=== PATIENT | female | born 1960 | race Caucasian/White ===

== ENCOUNTER 2018-09-03 07:02 | Emergency (ER) | payer BC ==
[2018-09-03 07:30] VITALS: BP 114/81
--- NOTE | 2018-09-03 07:52 | UC ---
Ear Complaint HPI - HPI Summary HPI Summary: 58 yo female c/o R ear pain, and now biting and chewing is clicking and becoming painful. States symptoms have worsened over the past week. States 2 years ago dentist changed her bite with a fake tooth - History of Current Complaint Chief Complaint: UCEar Stated Complaint: RIGHT EAR COMPLAINT Time Seen by Provider: 09/03/18 07:44 Hx Obtained From: Patient Hx Last Menstrual Period: 10yrs ?: No Onset/Duration: Sudden Onset, Lasting Days Severity Initially: Mild Severity Currently: Moderate Pain Intensity: 5 Aggravating Factors: Other - chewing Alleviating Factors: Nothing Associated Signs/Symptoms: Positive: URI Symptoms - Allergies/Home Medications Allergies/Adverse Reactions: Allergies Allergy/AdvReac Type Severity Reaction Status Date / Time No Known Allergies Allergy Verified 09/03/18 07:21 PMH/Surg Hx/FS Hx/Imm Hx Previously Healthy: Yes - Surgical History Surgical History: Yes Surgery Procedure, Year, and Place: laminectomy-x2(lumbar), hysterectomy, L foot. R total hip - Family History Known Family History: Positive: None - Social History Alcohol Use: None Substance Use Type: None Smoking Status (MU): Former Smoker Length of Time of Smoking/Using Tobacco: 30 yrs Have You Smoked in the Last Year: No When Did the Patient Quit Smoking/Using Tobacco: 2004 - Immunization History Most Recent Influenza Vaccination: 2014 Most Recent Tetanus Shot: UNKNOWN Most Recent Pneumonia Vaccination: NONE Review of Systems All Other Systems Reviewed And Are Negative: Yes ENT: Positive: Ear Ache Physical Exam Triage Information Reviewed: Yes Appearance: Well-Appearing, No Pain Distress, Well-Nourished Vital Signs: Initial Vital Signs Temp 97.6 F 09/03/18 07:24 Pulse 90 09/03/18 07:24 Resp 15 09/03/18 07:24 BP 114/81 09/03/18 07:24 Pulse Ox 100 09/03/18 07:24 Vital Signs Reviewed: Yes Eye Exam: Normal Eyes: Positive: Conjunctiva Clear ENT: Positive: Hearing grossly normal, Pharynx normal, Nasal congestion, Other - RTM opaque Neck: Positive: Supple, Nontender, No Lymphadenopathy Respiratory: Positive: Chest non-tender, Lungs clear, Normal breath sounds, No respiratory distress Cardiovascular: Positive: RRR, No Murmur, Pulses Normal, Brisk Capillary Refill Abdomen Description: Positive: Nontender Musculoskeletal: Positive: Strength Intact, ROM Intact, No Edema Psychological Exam: Normal Skin Exam: Normal Ear Complaint Course/Dx - Course Course Of Treatment: Exam compatible with serous otitis and eustachian tube dysfunction. Nasal saline and flonase spray recommended. Presence of TMJ right , advised to f/u dental due to changes in made in teeth prosthesis, may take ibuprofen as needed to decrease inflammation - Differential Dx/Diagnosis Provider Diagnoses: TMJ. Serous otitis media Discharge - Sign-Out/Discharge Documenting (check all that apply): Patient Departure All imaging exams completed and their final reports reviewed: No Studies - Discharge Plan Condition: Stable Disposition: HOME Prescriptions: Fluticasone NASAL SPRAY 50MCG* [Flonase NASAL SPRAY 50MCG*] 2 spray BOTH NARES DAILY 14 Days #1 btl Ibuprofen TAB* [Motrin TAB* 600 MG] 600 mg PO Q6H PRN #30 tab PRN Reason: Pain Patient Education Materials: Ibuprofen (By mouth), Fluticasone (Into the nose) , Temporomandibular Disorder (ED), Serous Otitis Media (ED) Referrals: Patricia Ward [Primary Care Provider] - - Billing Disposition and Condition Condition: STABLE Disposition: Home
== END 2018-09-03 08:05 | disposition home or self-care (01) ==
LOC: UCCORT 07:02
DX: M26.609 Unspecified temporomandibular joint disorder, unspecified side (principal); H65.91 Unspecified nonsuppurative otitis media, right ear; Z87.891 Personal history of nicotine dependence
CPT/HCPCS: 99212; G0463